=== PATIENT | male | born 1945 | race Caucasian/White ===

== ENCOUNTER 2018-06-20 20:29 | Inpatient (IN) | payer MEDICARE, MEDICAID ==
--- NOTE | 2018-06-20 21:35 | ED Physician Chart ---
ED Chief Complaint/HPI - Patient Information Date Seen:: 06/20/18 Time Seen:: 21:30 Chief Complaint:: increasing agitation History of Present Illness:: location: general quality: increasing agitation severity: moderate duration; 3 days context: SNF pt from [facility], has had slowly increasing agitation over the last 3 days. no pain complaint. RNs at facility report worsening agitation today. contacted Dr. Bhat who decided to send pt to ER for medical eval and seven-psyc admission to address and treat increasing psychiatric agitation. pt reports no pain complaint, no cough or SOB. medics report pt with stable vital signs during transportation on arrival pt in stable condition. mod factors: none assoc s/s: none hx from medic, facility RNs, Dr. Bhat Historian:: EMS Review:: Nurse's Note Reviewed, EMS run form Reviewed ED Review of Systems - Review of Systems General/Constitutional: No fever Skin: No rash Eyes: No loss of vision ENT: No nasal drainage Neck: No stiffness Cardio Vascular: No edema Pulmonary: No cough GI: No vomiting, No diarrhea G/U: No hematuria [employer]: No abnormal vaginal bleed Endocrine: No polyuria Psychiatric: Prior psych history Hematopoietic: No bruising Allergic/Immuno: No angioedema Neurological: No seizure ED Labs/Radiology/EKG Results - Lab Results Results: Laboratory Tests 06/20/18 06/20/18 06/20/18 21:40 21:40 22:15 WBC 6.3 RBC 5.18 Hgb 15.6 Hct 46.8 MCV 90.4 MCH 30.1 MCHC Differential 33.3 RDW 12.3 Plt Count 255 MPV 7.1 Neutrophils % 54.1 Lymphocytes % 31.7 Monocytes % 11.0 H Eosinophils % 2.3 Basophils % 0.9 Sodium 137 Potassium 4.1 Chloride 104 Carbon Dioxide 25.0 Anion Gap 12.1 BUN 26 H Creatinine 1.1 Est GFR ( Amer) TNP Est GFR (Non-Af Amer) TNP BUN/Creatinine Ratio 23.6 Glucose 113 H Calcium 9.5 Total Bilirubin 0.4 AST 14 ALT 11 Alkaline Phosphatase 72 Total Protein 7.0 Albumin 4.2 Globulin 2.8 Albumin/Globulin Ratio 1.5 Triglycerides 128 Cholesterol 201 H LDL Cholesterol Direct 149 HDL Cholesterol 43 Urine Source CLEAN C Urine Color ORANGE Urine Clarity HAZY Urine pH 6.0 Ur Specific [place] 1.025 Urine Protein NEGATIVE Urine Glucose (UA) NEGATIVE Urine Ketones TRACE Urine Blood NEGATIVE Urine Nitrate NEGATIVE Urine Bilirubin NEGATIVE Urine Urobilinogen 1.0 Ur Leukocyte Esterase TRACE H Urine RBC NONE SEEN Urine WBC 0-2 Ur Epithelial Cells OCCASIONAL Urine Bacteria FEW - EKG Interpretations Comments:: EKG NSR 60 atrial premature complex no acute ST elevation no acute ST depression normal axis otherwise normal EKG pt with no CP and no SOB ER READ ED Assessment - Assessment General Assessment: pt stable while in ER. sitting on gurney folding and stretching blanket for several minutes no acute abnormality no yelling during ER stay. ED Septic Shock - . Is Septic Shock (SBP<90, OR Lactate>4 mmol\L) present?: No - <6hrs of presentation: Assessment of Lungs: Lung CTA bilateral Assessment of Heart: RRR EKG Interpretation: NSR Capillary refill evaluation: Capillary refill < 2 secs Skin Exam: Warm, Dry, Good Turgur ED Reassessment (Disposition) - Reassessment Reassessment:: medical decision making pt with UTI, otherwise medically clear for seven-psyc will give first dose bactrim in ER no allergies then medically clear for seven psyc Reassessment Condition:: Unchanged - Diagnosis Diagnosis:: medical clearance for seven-psyc acute uncomplicated urinary tract infection - Patient Disposition Discharge/Transfer:: Acute Care w/in this hosp Admitted to:: [facility] Admitting Medical Physician:: Rajesh Bañuelos Admitting Psych Physician:: Bud Diallo Time:: 22:55 Condition at Disposition:: Stable, Unchanged
[2018-06-20 21:56] LABS: % BASOPHILS 0.9 % (0.0-2.0); % EOSINOPHILS 2.3 % (0.0-5.0); % LYMPHOCYTES 31.7 % (20.0-50.0); % NEUTROPHILS 54.1 % (40.0-80.0); BASOPHILE ABSOLUTE 0.1 Th/cumm (0-0.2); EOSINOPHILE ABSOLUTE 0.1 Th/cmm (0.1-0.4); HEMATOCRIT 46.8 % (41.0-60); HEMOGLOBIN 15.6 gm/dL (12-16); MEAN CELL VOLUME 90.4 fl (80-99); MEAN CORPUSCULAR HEMOGLOBIN 30.1 pg (27.0-31.0); MEAN CORPUSCULAR HGB CONC 33.3 pg (28.0-36.0); MEAN PLATELET VOLUME 7.1 fl; MONOCYTE ABSOLUTE 0.7 Th/cmm (0.3-1.0); NEUTROPHILE ABSOLUTE 3.4 Th/cmm (1.8-8.0); PLATELET COUNT 255 Th/cmm (150-400); RED BLOOD COUNT 5.18 Mil/cmm (3.80-5.80); RED CELL DISTRIBUTION WIDTH 12.3 % (11.5-20.0); WHITE BLOOD COUNT 6.3 Th/cmm (4.8-10.8)
[2018-06-20 22:13] LABS: ALB/GLOB RATIO 1.5 (1.0-1.8); ALBUMIN 4.2 gm/dL (4.2-5.5); ALKALINE PHOSPHATASE 72 U/L (34-104); ANION GAP 12.1 (7.0-16.0); BILIRUBIN,TOTAL 0.4 mg/dL (0.3-1.0); BUN - UREA NITROGEN 26 mg/dL (7-25); CALCIUM SERUM 9.5 mg/dL (8.6-10.3); CHLORIDE 104 mEq/L (98-107); CHOLESTEROL 201 mg/dL (<200); CREATININE - SERUM 1.1 mg/dL (0.7-1.3); GLUCOSE 113 mg/dL (70-105); HDL -HIGH DENSITY LIPOPROTEIN 43 mg/dL (23-92); POTASSIUM SERUM 4.1 mEq/L (3.5-5.1); SGOT 14 U/L (13-39); SGPT/ALT 11 U/L (7-52); SODIUM SERUM 137 mEq/L (136-145); TRIGLYCERIDES 128 mg/dL (<150)
[2018-06-20 22:33] LABS: URINE SOURCE CLEAN C
[2018-06-20 22:37] LABS: URINE BILIRUBIN NEGATIVE (NEGATIVE); URINE BLOOD NEGATIVE (NEGATIVE); URINE GLUCOSE (UA) NEGATIVE (NEGATIVE); URINE KETONE TRACE mg/dL (NEGATIVE); URINE LEUKOCYTE ESTERASE TRACE (NEGATIVE); URINE MICROSCOPIC INDICATED? YES; URINE NITRATE NEGATIVE (NEGATIVE); URINE PROTEIN NEGATIVE (NEGATIVE)
[2018-06-20 22:39] LABS: URINE CLARITY HAZY (CLEAR); URINE COLOR ORANGE
[2018-06-20 22:43] LABS: URINE RBC NONE SEEN /hpf (0-5); URINE WBC 0-2 /hpf (0-5)
[2018-06-20 22:44] LABS: URINE BACTERIA FEW /hpf (NONE SEEN); URINE EPITHELIAL CELLS OCCASIONAL /lpf (FEW)
[2018-06-20] MEDS ORDERED: Sulfamethoxazole/TMP 800/160mg Tab PO ONE (22:51)
[2018-06-20] MEDS ORDERED: Sulfamethoxazole/TMP 800/160mg Tab ONE (23:04)
[2018-06-21 01:59] VITALS: BP 118/70
[2018-06-21] MEDS ORDERED: Magnesium Hydroxide (MOM) 30 mL UDC PO PRN (02:13)
[2018-06-21] MEDS ORDERED: Maalox 30 mL Cup PO PRN (02:13)
[2018-06-21] MEDS: Multivitamin Tab PO SCH (09:07)
--- NOTE | 2018-06-21 16:03 | History & Physical ---
ADMIT DATE: 06/20/2018 CHIEF COMPLAINT: Increasing agitation. HISTORY OF PRESENT ILLNESS: This is a 72-year-old unfortunate male with history of intellectual disability, psych disorder, hypertension, and hypercholesterolemia; admitted from nursing facility secondary to above complaints under the service of Dr. Diallo. The patient is not a best historian, so only answered yes to all the questions. PAST MEDICAL HISTORY: As mentioned in the history of present illness. PAST SURGICAL HISTORY: Unable to obtain from the patient. ALLERGIES: No known drug allergies. MEDICATIONS: Colace, lisinopril, ____, multivitamin, Ambien. FAMILY HISTORY: Noncontributory. SOCIAL HISTORY: The patient is a half-way patient requiring 24-hour total care. REVIEW OF SYSTEMS: This is limited secondary to the patient's current mental state. We will try to obtain more detailed review of systems at a later date by talking to family members; Dayan, alex cell phone number [phone]. Another family member Carlos, ____ cell phone number [phone]. We will try to get information from nursing staff ____ as well as from Dr. Williamson, who was the attending at the nursing facility. PHYSICAL EXAMINATION: VITAL SIGNS: Blood pressure 141/70, respiration 20, pulse 53, temperature 98.1. GENERAL: Elderly male who appears his stated age. Ambulating. NECK: Supple. LUNGS: Breath sounds are otherwise clear to auscultation. HEART: Regular rate and rhythm without appreciable murmur. ABDOMEN: Soft, nontender. EXTREMITIES: No clubbing, cyanosis or edema. Positive excoriation. LABORATORY DATA: WBC ____, hemoglobin 15, platelets 255. Sodium 137, potassium 4.0, BUN 26, creatinine 1.1, blood sugar 113. UA essentially negative. ASSESSMENT AND PLAN: 1. Bradycardia. 2. Renal insufficiency. 3. Hypercholesterolemia. 4. Hypertension. 5. Intellectual disability. We will continue ____ treatment. We will place the patient on low fat, low cholesterol diet, continue on angiotensin converting enzyme inhibitor. Continue with current care. We will continue to follow. Psychiatry to manage the patient for psych issues. JOB# [id number]
--- NOTE | 2018-06-21 21:50 | Psychiatric Evaluation ---
DATE OF SERVICE: 06/21/2018 IDENTIFYING DATA: The patient is a 72-year-old male, resident of [facility]. Information obtained by directly interviewing the patient as well as reviewing the admission papers. JUSTIFICATION OF HOSPITALIZATION: The patient is admitted for increased agitation and psychosis. CHIEF COMPLAINT: "I don't know." HISTORY OF PRESENT ILLNESS: This is a first psychiatric hospitalization to [facility] for this patient who has been diagnosed to have been getting agitated and the patient is reported to have a urinary tract infection ____ and has been medically cleared and has been transferred to the psychiatric unit for further evaluation. During the evaluation, the patient is confused and having a cup in his hand that is empty and the patient is not letting it go. The patient has been very guarded and is not able to provide much of information. The patient needs to redirected and the patient is reported to have been getting easily agitated. 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 The patient is also being treated for hypertension. I am not able to get much of information from the patient, but the patient's sleep and appetite prior to the hospitalization are reported to be poor. PAST PSYCHIATRIC HISTORY: Details are not known. MEDICAL HISTORY: Physical examination is requested to be done by Dr. Bañuelos. SUBSTANCE ABUSE HISTORY: None. PHYSICAL OR SEXUAL ABUSE HISTORY: None. STRENGTH AND ASSETS: The patient is motivated. MENTAL STATUS EXAMINATION: The patient is a 72-year-old, looking his stated age, superficially cooperative and is getting easily anxious and agitated. The patient has paranoia, but denies any command hallucinations. The patient's short and long-term memory are noted to be very much impaired. The patient is not able to recall the time, day, and date. Attention span and concentration are also noted to be very poor. DIAGNOSTIC IMPRESSION: AXIS I: Psychotic disorder, not otherwise specified. IB. Dementia and behavioral change, secondary trait. AXIS II: None. AXIS III: Hypertension. IMMEDIATE TREATMENT PLAN: The patient is going to be observed on the inpatient unit, providing supportive psychotherapy. The patient is going to be closely monitored. Once stabilized, the patient is going to be discharged to [facility] for further care. [facility]# [id number]
[2018-06-22] MEDS: Multivitamin Tab PO SCH (09:07)
--- NOTE | 2018-06-22 13:05 | Internal Medicine Prog Note ---
Internal Medicine Subjective - Subjective Patient seen and examined:: with staff, chart reviewed Patient is:: awake, verbal, interactive Per staff patient has:: no adverse event, no episodes of fall, poor appetite, tolerating meds Internal Medicine Objective - Results Result Diagrams: 06/20/18 21:40 06/20/18 21:40 Recent Labs: Laboratory Last Values WBC 6.3 Th/cmm (4.8-10.8) 06/20/18 21:40 RBC 5.18 Mil/cmm (3.80-5.80) 06/20/18 21:40 Hgb 15.6 gm/dL (12-16) 06/20/18 21:40 Hct 46.8 % (41.0-60) 06/20/18 21:40 MCV 90.4 fl (80-99) 06/20/18 21:40 MCH 30.1 pg (27.0-31.0) 06/20/18 21:40 MCHC Differential 33.3 pg (28.0-36.0) 06/20/18 21:40 RDW 12.3 % (11.5-20.0) 06/20/18 21:40 Plt Count 255 Th/cmm (150-400) 06/20/18 21:40 MPV 7.1 fl 06/20/18 21:40 Neutrophils % 54.1 % (40.0-80.0) 06/20/18 21:40 Lymphocytes % 31.7 % (20.0-50.0) 06/20/18 21:40 Monocytes % 11.0 % (2.0-10.0) H 06/20/18 21:40 Eosinophils % 2.3 % (0.0-5.0) 06/20/18 21:40 Basophils % 0.9 % (0.0-2.0) 06/20/18 21:40 Sodium 137 mEq/L (136-145) 06/20/18 21:40 Potassium 4.1 mEq/L (3.5-5.1) 06/20/18 21:40 Chloride 104 mEq/L (98-107) 06/20/18 21:40 Carbon Dioxide 25.0 mEq/L (21.0-31.0) 06/20/18 21:40 Anion Gap 12.1 (7.0-16.0) 12/31/18 21:40 BUN 26 mg/dL (7-25) H 06/20/18 21:40 Creatinine 1.1 mg/dL (0.7-1.3) 06/20/18 21:40 Est GFR ( Amer) TNP 06/20/18 21:40 Est GFR (Non-Af Amer) TNP 06/20/18 21:40 BUN/Creatinine Ratio 23.6 06/20/18 21:40 Glucose 113 mg/dL (70-105) H 06/20/18 21:40 Calcium 9.5 mg/dL (8.6-10.3) 06/20/18 21:40 Total Bilirubin 0.4 mg/dL (0.3-1.0) 06/20/18 21:40 AST 14 U/L (13-39) 06/20/18 21:40 ALT 11 U/L (7-52) 06/20/18 21:40 Alkaline Phosphatase 72 U/L (34-104) 06/20/18 21:40 Total Protein 7.0 gm/dL (6.0-8.3) 06/20/18 21:40 Albumin 4.2 gm/dL (4.2-5.5) 06/20/18 21:40 Globulin 2.8 gm/dL 06/20/18 21:40 Albumin/Globulin Ratio 1.5 (1.0-1.8) 06/20/18 21:40 Triglycerides 128 mg/dL (<150) 06/20/18 21:40 Cholesterol 201 mg/dL (<200) H 06/20/18 21:40 LDL Cholesterol Direct 149 mg/dL (75-193) 06/20/18 21:40 HDL Cholesterol 43 mg/dL (23-92) 06/20/18 21:40 TSH 1.15 uIU/ml (0.34-5.60) 06/20/18 21:40 Urine Source CLEAN C 06/20/18 22:15 Urine Color ORANGE 06/20/18 22:15 Urine Clarity HAZY (CLEAR) 06/20/18 22:15 Urine pH 6.0 (4.6 - 8.0) 06/20/18 22:15 Ur Specific [place] 1.025 (1.005-1.030) 06/20/18 22:15 Urine Protein NEGATIVE mg/dL (NEGATIVE) 06/20/18 22:15 Urine Glucose (UA) NEGATIVE mg/dL (NEGATIVE) 06/20/18 22:15 Urine Ketones TRACE mg/dL (NEGATIVE) 06/20/18 22:15 Urine Blood NEGATIVE (NEGATIVE) 06/20/18 22:15 Urine Nitrate NEGATIVE (NEGATIVE) 06/20/18 22:15 Urine Bilirubin NEGATIVE (NEGATIVE) 06/20/18 22:15 Urine Urobilinogen 1.0 E.U./dL (0.2 - 1.0) 06/20/18 22:15 Ur Leukocyte Esterase TRACE (NEGATIVE) H 06/20/18 22:15 Urine RBC NONE SEEN /hpf (0-5) 06/20/18 22:15 Urine WBC 0-2 /hpf (0-5) 06/20/18 22:15 Ur Epithelial Cells OCCASIONAL /lpf (FEW) 06/20/18 22:15 Urine Bacteria FEW /hpf (NONE SEEN) 06/20/18 22:15 - Physical Exam Vitals and I&O: Vital Signs Temp 97.8 F 06/22/18 06:24 Pulse 59 06/22/18 08:18 Resp 19 06/22/18 06:24 BP 124/76 06/22/18 08:18 Pulse Ox 98 06/22/18 06:24 Intake & Output 06/21/18 06/22/18 06/22/18 18:59 06:59 18:59 Intake Total 240 Balance 240 Intake: Oral 240 Other: # Voids 1 # Bowel Movements 0 Active Medications: Current Medications Acetaminophen (Tylenol) 650 mg PO Q4HR PRN PRN Reason: Mild Pain 1-3/ Temp above 100 Stop: 08/20/18 02:12 Al Hydrox/Mg Hydrox/Simethicone (Maalox) 30 ml PO Q4HR PRN PRN Reason: GI DISTRESS Stop: 08/20/18 02:12 Docusate Sodium (Colace) 100 mg PO BID [facility] Stop: 08/20/18 08:59 Last Admin: 06/22/18 09:07 Dose: 100 mg Lisinopril (Zestril) 10 mg PO DAILY [facility] Stop: 08/20/18 08:59 Last Admin: 06/22/18 08:18 Dose: Not Given Lorazepam (Ativan) 0.5 mg PO Q4HR PRN; Protocol PRN Reason: Agitation/ Anxiety Stop: 07/21/18 02:12 Last Admin: 06/22/18 09:07 Dose: 0.5 mg Magnesium Hydroxide (Milk Of Magnesia) 30 ml PO HS PRN PRN Reason: Constipation Multivitamins/Vitamin C (Theragran) 1 tab PO DAILY [facility] Stop: 08/20/18 08:59 Last Admin: 06/22/18 09:07 Dose: 1 tab Zolpidem Tartrate (Ambien) 5 mg PO HS PRN PRN Reason: Insomnia Stop: 08/20/18 02:12 Last Admin: 06/21/18 20:25 Dose: 5 mg General: demented HEENT: NC/AT, PERRLA Neck: Supple, No JVD, No LAD Lungs: CTAB Cardiovascular: RRR, Normal S1, Normal S2, with murmur Abdomen: soft, non-tender, globular, non-distended, positive bowel sound Extremities: excoriation Neurological: no change, disorganized Internal Medicine Assmt/Plan - Assessment Assessment: ASSESSMENT AND PLAN: 1. Bradycardia. 2. Renal insufficiency. 3. Hypercholesterolemia. 4. Hypertension. 5. Intellectual disability. - Plan Plan: PLAN: We will continue __current__ treatment. We will place the patient on low fat, low cholesterol diet, continue on angiotensin converting enzyme inhibitor. Continue with current care. We will continue to follow. Psychiatry to manage the patient for psych issues.
--- NOTE | 2018-06-22 18:47 | Consultation ---
DATE OF CONSULTATION: 06/22/2018 REQUESTING PHYSICIAN: Bud Diallo M.D. TYPE OF CONSULTATION: Psychology. HISTORY OF PRESENT ILLNESS: The patient is a 72-year-old male. The patient is a resident of [facility]. The following is by review of the medical record and by patient's self-report. The patient is being admitted due to increased agitation and psychosis. Upon interview, the patient states that he does not know why he is being hospitalized. The staff at the patient's facility reports that the patient had become confused as well as guarded and easily agitated. The staff also reported the patient would refuse treatment at times. The patient was admitted through the ER and was medically cleared and transferred to the geropsychiatric unit. The patient denied any suicidal ideation, plan, or intention. PAST MEDICAL HISTORY: Please see history and physical by Dr. Bañuelos. PAST PSYCHIATRIC HISTORY: Records are unavailable. Details are unknown. SUBSTANCE ABUSE HISTORY: The patient did not answer these questions regarding the use of alcohol, tobacco, or illicit drugs. PSYCHOSOCIAL HISTORY: The patient did not answer questions about occupational or educational history. The patient states that he is a [employer]. The patient denied any history of physical or sexual abuse. The patient did not answer questions about current legal problems. The patient did not answer questions about family members involved in his care. The patient wishes to return to [facility]. MENTAL STATUS EXAMINATION: The patient appears to be his stated age. The patient's attitude is superficially cooperative. Eye contact is poor. Mood is anxious and irritable. Affect is constricted. Thought process shows to be confused. There is evidence of paranoid ideation. The patient denied any auditory or visual hallucinations. The patient denies any suicidal or homicidal ideation, plan, or intention. The patient's behavior has been difficult to redirect on the unit according to staff. Impulse control is poor. Concentration is very poor. Sensorium is alert and oriented to self only. The patient did not participate in the memory assessment. It appears the patient's immediate and short term memory are impaired. Long-term memory needs further evaluation. The patient did not participate in the interpretation of proverbs. Insight is impaired. Judgment is impaired. DIAGNOSTIC IMPRESSION: AXIS I: 1. Psychotic disorder, not otherwise specified. 2. Dementia with behavioral disturbance. AXIS II: Deferred. AXIS III: Per Dr. Bañuelos. TREATMENT PLAN: The patient has been seen by Dr. Diallo for psychiatric evaluation and for the management of the patient's psychotropic medications. We will provide supportive psychotherapy to include reality orientation, differentiation, and integration. We will provide de-escalation and limit setting. We will provide stress management to assist the patient in increasing his frustration tolerance. We will provide motivational enhancement for the patient to become compliant and stay compliant with all aspects of his care and treatment. We will provide coping strategies for phase of life issues as well. We will encourage the patient to be able to demonstrate emotional and self-regulation prior to his discharge. Thank you, Dr. Diallo, for this consult and the opportunity to participate in this patient's care. JOB# [id number] RAINA
--- NOTE | 2018-06-22 23:34 | Progress Notes ---
DATE: 06/22/2018 PSYCHIATRIC PROGRESS NOTE SUBJECTIVE: Staff was spoken to. The patient is interviewed. Mood is noted to be irritable. Affect is constricted. Insight and judgment are noted to be still impaired. Impulse control is noted to be poor. Coping skills are also noted to be very poor. The patient has been having difficult time to cope with the stress. No side effects to the medications are noted. ASSESSMENT: The patient is still impulsive. PLAN: To continue the patient with the supportive therapy and follow up. [facility]# [id number]
[2018-06-23] MEDS: Multivitamin Tab PO SCH ×2 (08:41→08:56)
--- NOTE | 2018-06-23 12:53 | Internal Medicine Prog Note ---
Internal Medicine Subjective - Subjective Patient seen and examined:: with staff, chart reviewed Patient is:: awake, verbal, interactive Per staff patient has:: no adverse event, no episodes of fall, poor appetite, tolerating meds Internal Medicine Objective - Results Result Diagrams: 06/20/18 21:40 06/20/18 21:40 Recent Labs: Laboratory Last Values WBC 6.3 Th/cmm (4.8-10.8) 06/20/18 21:40 RBC 5.18 Mil/cmm (3.80-5.80) 06/20/18 21:40 Hgb 15.6 gm/dL (12-16) 06/20/18 21:40 Hct 46.8 % (41.0-60) 06/20/18 21:40 MCV 90.4 fl (80-99) 06/20/18 21:40 MCH 30.1 pg (27.0-31.0) 06/20/18 21:40 MCHC Differential 33.3 pg (28.0-36.0) 06/20/18 21:40 RDW 12.3 % (11.5-20.0) 06/20/18 21:40 Plt Count 255 Th/cmm (150-400) 06/20/18 21:40 MPV 7.1 fl 06/20/18 21:40 Neutrophils % 54.1 % (40.0-80.0) 06/20/18 21:40 Lymphocytes % 31.7 % (20.0-50.0) 06/20/18 21:40 Monocytes % 11.0 % (2.0-10.0) H 06/20/18 21:40 Eosinophils % 2.3 % (0.0-5.0) 06/20/18 21:40 Basophils % 0.9 % (0.0-2.0) 06/20/18 21:40 Sodium 137 mEq/L (136-145) 06/20/18 21:40 Potassium 4.1 mEq/L (3.5-5.1) 06/20/18 21:40 Chloride 104 mEq/L (98-107) 06/20/18 21:40 Carbon Dioxide 25.0 mEq/L (21.0-31.0) 06/20/18 21:40 Anion Gap 12.1 (7.0-16.0) 12/31/18 21:40 BUN 26 mg/dL (7-25) H 06/20/18 21:40 Creatinine 1.1 mg/dL (0.7-1.3) 06/20/18 21:40 Est GFR ( Amer) TNP 06/20/18 21:40 Est GFR (Non-Af Amer) TNP 06/20/18 21:40 BUN/Creatinine Ratio 23.6 06/20/18 21:40 Glucose 113 mg/dL (70-105) H 06/20/18 21:40 Calcium 9.5 mg/dL (8.6-10.3) 06/20/18 21:40 Total Bilirubin 0.4 mg/dL (0.3-1.0) 06/20/18 21:40 AST 14 U/L (13-39) 06/20/18 21:40 ALT 11 U/L (7-52) 06/20/18 21:40 Alkaline Phosphatase 72 U/L (34-104) 06/20/18 21:40 Total Protein 7.0 gm/dL (6.0-8.3) 06/20/18 21:40 Albumin 4.2 gm/dL (4.2-5.5) 06/20/18 21:40 Globulin 2.8 gm/dL 06/20/18 21:40 Albumin/Globulin Ratio 1.5 (1.0-1.8) 06/20/18 21:40 Triglycerides 128 mg/dL (<150) 06/20/18 21:40 Cholesterol 201 mg/dL (<200) H 06/20/18 21:40 LDL Cholesterol Direct 149 mg/dL (75-193) 06/20/18 21:40 HDL Cholesterol 43 mg/dL (23-92) 06/20/18 21:40 TSH 1.15 uIU/ml (0.34-5.60) 06/20/18 21:40 Urine Source CLEAN C 06/20/18 22:15 Urine Color ORANGE 06/20/18 22:15 Urine Clarity HAZY (CLEAR) 06/20/18 22:15 Urine pH 6.0 (4.6 - 8.0) 06/20/18 22:15 Ur Specific [place] 1.025 (1.005-1.030) 06/20/18 22:15 Urine Protein NEGATIVE mg/dL (NEGATIVE) 06/20/18 22:15 Urine Glucose (UA) NEGATIVE mg/dL (NEGATIVE) 06/20/18 22:15 Urine Ketones TRACE mg/dL (NEGATIVE) 06/20/18 22:15 Urine Blood NEGATIVE (NEGATIVE) 06/20/18 22:15 Urine Nitrate NEGATIVE (NEGATIVE) 06/20/18 22:15 Urine Bilirubin NEGATIVE (NEGATIVE) 06/20/18 22:15 Urine Urobilinogen 1.0 E.U./dL (0.2 - 1.0) 06/20/18 22:15 Ur Leukocyte Esterase TRACE (NEGATIVE) H 06/20/18 22:15 Urine RBC NONE SEEN /hpf (0-5) 06/20/18 22:15 Urine WBC 0-2 /hpf (0-5) 06/20/18 22:15 Ur Epithelial Cells OCCASIONAL /lpf (FEW) 06/20/18 22:15 Urine Bacteria FEW /hpf (NONE SEEN) 06/20/18 22:15 - Physical Exam Vitals and I&O: Vital Signs Temp 98.2 F 06/23/18 06:50 Pulse 86 06/23/18 06:50 Resp 18 06/23/18 10:40 BP 129/74 06/23/18 06:50 Pulse Ox 100 06/23/18 06:50 Intake & Output 06/22/18 06/23/18 06/23/18 18:59 06:59 18:59 Intake Total 800 300 Balance 800 300 Intake: Oral 800 300 Other: # Voids 4 1 # Bowel Movements 0 1 Active Medications: Current Medications Acetaminophen (Tylenol) 650 mg PO Q4HR PRN PRN Reason: Mild Pain 1-3/ Temp above 100 Stop: 08/20/18 02:12 Al Hydrox/Mg Hydrox/Simethicone (Maalox) 30 ml PO Q4HR PRN PRN Reason: GI DISTRESS Stop: 08/20/18 02:12 Docusate Sodium (Colace) 100 mg PO BID [facility] Stop: 08/20/18 08:59 Last Admin: 06/23/18 08:55 Dose: Not Given Escitalopram Oxalate (Lexapro) 5 mg PO DAILY [facility]; Protocol Stop: 08/23/18 08:59 Lisinopril (Zestril) 10 mg PO DAILY [facility] Stop: 08/20/18 08:59 Last Admin: 06/23/18 08:55 Dose: Not Given Lorazepam (Ativan) 0.5 mg PO Q4HR PRN; Protocol PRN Reason: Agitation/ Anxiety Stop: 07/21/18 02:12 Last Admin: 06/22/18 09:07 Dose: 0.5 mg Magnesium Hydroxide (Milk Of Magnesia) 30 ml PO HS PRN PRN Reason: Constipation Multivitamins/Vitamin C (Theragran) 1 tab PO DAILY [facility] Stop: 08/20/18 08:59 Last Admin: 06/23/18 08:56 Dose: Not Given Zolpidem Tartrate (Ambien) 5 mg PO HS PRN PRN Reason: Insomnia Stop: 08/20/18 02:12 Last Admin: 06/22/18 20:56 Dose: 5 mg General: demented HEENT: NC/AT, PERRLA Neck: Supple, No JVD, No LAD Lungs: CTAB Cardiovascular: RRR, Normal S1, Normal S2, with murmur Abdomen: soft, non-tender, globular, non-distended, positive bowel sound Extremities: excoriation Neurological: no change, disorganized Internal Medicine Assmt/Plan - Assessment Assessment: ASSESSMENT AND PLAN: 1. Bradycardia. 2. Renal insufficiency. 3. Hypercholesterolemia. 4. Hypertension. 5. Intellectual disability. - Plan Plan: PLAN: We will continue __current__ treatment. We will place the patient on low fat, low cholesterol diet, continue on angiotensin converting enzyme inhibitor. Continue with current care. We will continue to follow. Psychiatry to manage the patient for psych issues.
--- NOTE | 2018-06-23 20:20 | Progress Notes ---
DATE: 06/23/2018 SUBJECTIVE: Staff was spoken to. The patient is interviewed. Mood is noted to be irritable. Affect is constricted. The patient's insight and judgment is noted to be still impaired. Impulse control is noted to be poor. Coping skills are noted to be very poor. The patient has been having difficult time to cope with the stress. No side effects to the medications are noted. The patient has been getting easily frustrated when staff are trying to help him with his ADLs. ASSESSMENT: The patient is still impulsive. The patient is depressed at this time. Plan to add to the Lexapro and encourage the patient to verbalize the concerned rather than to act out. PLAN: To continue the patient with current medications and since the patient has been extremely depressed and is not getting out of the bed, it is decided to add a low dose of the Lexapro and see if it is going to be of some help with the depression for this patient. JOB# [id number]
[2018-06-24] MEDS ORDERED: Escitalopram Oxalate 5 mg Tab PO SCH (09:00)
[2018-06-24] MEDS: Multivitamin Tab PO SCH (09:42)
--- NOTE | 2018-06-24 12:26 | Progress Notes ---
DATE: 06/24/2018 PSYCHIATRIC PROGRESS NOTE PROGRESS ON THE UNIT: Staff was spoken to. The patient is interviewed. Mood is noted to be irritable. Affect is constricted. The patient is still isolative and withdrawn. Insight and judgment at this time are noted to be still impaired. The patient has been on 5 mg of Lexapro and has been able to tolerate the medication. The patient continues to be depressed, very, very limited participation in the groups. ASSESSMENT: The patient is still depressed. PLAN: To continue the patient with supportive therapy. I encouraged the patient to verbalize the concerns rather than to act out. JOB# [id number]
--- NOTE | 2018-06-24 13:06 | Internal Medicine Prog Note ---
Internal Medicine Subjective - Subjective Patient seen and examined:: with staff, chart reviewed Patient is:: awake, verbal, interactive Per staff patient has:: no adverse event, no episodes of fall, poor appetite, tolerating meds Internal Medicine Objective - Results Result Diagrams: 06/20/18 21:40 06/20/18 21:40 Recent Labs: Laboratory Last Values WBC 6.3 Th/cmm (4.8-10.8) 06/20/18 21:40 RBC 5.18 Mil/cmm (3.80-5.80) 06/20/18 21:40 Hgb 15.6 gm/dL (12-16) 06/20/18 21:40 Hct 46.8 % (41.0-60) 06/20/18 21:40 MCV 90.4 fl (80-99) 06/20/18 21:40 MCH 30.1 pg (27.0-31.0) 06/20/18 21:40 MCHC Differential 33.3 pg (28.0-36.0) 06/20/18 21:40 RDW 12.3 % (11.5-20.0) 06/20/18 21:40 Plt Count 255 Th/cmm (150-400) 06/20/18 21:40 MPV 7.1 fl 06/20/18 21:40 Neutrophils % 54.1 % (40.0-80.0) 06/20/18 21:40 Lymphocytes % 31.7 % (20.0-50.0) 06/20/18 21:40 Monocytes % 11.0 % (2.0-10.0) H 06/20/18 21:40 Eosinophils % 2.3 % (0.0-5.0) 06/20/18 21:40 Basophils % 0.9 % (0.0-2.0) 06/20/18 21:40 Sodium 137 mEq/L (136-145) 06/20/18 21:40 Potassium 4.1 mEq/L (3.5-5.1) 06/20/18 21:40 Chloride 104 mEq/L (98-107) 06/20/18 21:40 Carbon Dioxide 25.0 mEq/L (21.0-31.0) 06/20/18 21:40 Anion Gap 12.1 (7.0-16.0) 12/31/18 21:40 BUN 26 mg/dL (7-25) H 06/20/18 21:40 Creatinine 1.1 mg/dL (0.7-1.3) 06/20/18 21:40 Est GFR ( Amer) TNP 06/20/18 21:40 Est GFR (Non-Af Amer) TNP 06/20/18 21:40 BUN/Creatinine Ratio 23.6 06/20/18 21:40 Glucose 113 mg/dL (70-105) H 06/20/18 21:40 Calcium 9.5 mg/dL (8.6-10.3) 06/20/18 21:40 Total Bilirubin 0.4 mg/dL (0.3-1.0) 06/20/18 21:40 AST 14 U/L (13-39) 06/20/18 21:40 ALT 11 U/L (7-52) 06/20/18 21:40 Alkaline Phosphatase 72 U/L (34-104) 06/20/18 21:40 Total Protein 7.0 gm/dL (6.0-8.3) 06/20/18 21:40 Albumin 4.2 gm/dL (4.2-5.5) 06/20/18 21:40 Globulin 2.8 gm/dL 06/20/18 21:40 Albumin/Globulin Ratio 1.5 (1.0-1.8) 06/20/18 21:40 Triglycerides 128 mg/dL (<150) 06/20/18 21:40 Cholesterol 201 mg/dL (<200) H 06/20/18 21:40 LDL Cholesterol Direct 149 mg/dL (75-193) 06/20/18 21:40 HDL Cholesterol 43 mg/dL (23-92) 06/20/18 21:40 TSH 1.15 uIU/ml (0.34-5.60) 06/20/18 21:40 Urine Source CLEAN C 06/20/18 22:15 Urine Color ORANGE 06/20/18 22:15 Urine Clarity HAZY (CLEAR) 06/20/18 22:15 Urine pH 6.0 (4.6 - 8.0) 06/20/18 22:15 Ur Specific [place] 1.025 (1.005-1.030) 06/20/18 22:15 Urine Protein NEGATIVE mg/dL (NEGATIVE) 06/20/18 22:15 Urine Glucose (UA) NEGATIVE mg/dL (NEGATIVE) 06/20/18 22:15 Urine Ketones TRACE mg/dL (NEGATIVE) 06/20/18 22:15 Urine Blood NEGATIVE (NEGATIVE) 06/20/18 22:15 Urine Nitrate NEGATIVE (NEGATIVE) 06/20/18 22:15 Urine Bilirubin NEGATIVE (NEGATIVE) 06/20/18 22:15 Urine Urobilinogen 1.0 E.U./dL (0.2 - 1.0) 06/20/18 22:15 Ur Leukocyte Esterase TRACE (NEGATIVE) H 06/20/18 22:15 Urine RBC NONE SEEN /hpf (0-5) 06/20/18 22:15 Urine WBC 0-2 /hpf (0-5) 06/20/18 22:15 Ur Epithelial Cells OCCASIONAL /lpf (FEW) 06/20/18 22:15 Urine Bacteria FEW /hpf (NONE SEEN) 06/20/18 22:15 RPR NONREACTIVE (NONREACTIVE) 06/20/18 21:40 - Physical Exam Vitals and I&O: Vital Signs Temp 97.4 F 06/23/18 20:00 Pulse 80 06/24/18 09:42 Resp 20 06/23/18 20:00 BP 124/64 06/24/18 09:42 Pulse Ox 98 06/23/18 20:00 Intake & Output 06/23/18 06/24/18 06/24/18 18:59 06:59 18:59 Intake Total 1400 Balance 1400 Intake: Oral 1400 Other: # Voids 4 # Bowel Movements 0 Active Medications: Current Medications Acetaminophen (Tylenol) 650 mg PO Q4HR PRN PRN Reason: Mild Pain 1-3/ Temp above 100 Stop: 08/20/18 02:12 Al Hydrox/Mg Hydrox/Simethicone (Maalox) 30 ml PO Q4HR PRN PRN Reason: GI DISTRESS Stop: 08/20/18 02:12 Docusate Sodium (Colace) 100 mg PO BID VALENTIN Stop: 08/20/18 08:59 Last Admin: 06/24/18 09:42 Dose: 100 mg Escitalopram Oxalate (Lexapro) 5 mg PO DAILY [facility]; Protocol Stop: 08/23/18 08:59 Last Admin: 06/24/18 09:43 Dose: 5 mg Lisinopril (Zestril) 10 mg PO DAILY VALENTIN Stop: 08/20/18 08:59 Last Admin: 06/24/18 09:42 Dose: 10 mg Lorazepam (Ativan) 0.5 mg PO Q4HR PRN; Protocol PRN Reason: Agitation/ Anxiety Stop: 07/21/18 02:12 Last Admin: 06/23/18 15:19 Dose: 0.5 mg Magnesium Hydroxide (Milk Of Magnesia) 30 ml PO HS PRN PRN Reason: Constipation Multivitamins/Vitamin C (Theragran) 1 tab PO DAILY VALENTIN Stop: 08/20/18 08:59 Last Admin: 06/24/18 09:42 Dose: 1 tab Zolpidem Tartrate (Ambien) 5 mg PO HS PRN PRN Reason: Insomnia Stop: 08/20/18 02:12 Last Admin: 06/22/18 20:56 Dose: 5 mg General: demented HEENT: NC/AT, PERRLA Neck: Supple, No JVD, No LAD Lungs: CTAB Cardiovascular: RRR, Normal S1, Normal S2, with murmur Abdomen: soft, non-tender, globular, non-distended, positive bowel sound Extremities: excoriation Neurological: no change, disorganized Internal Medicine Assmt/Plan - Assessment Assessment: ASSESSMENT AND PLAN: 1. Bradycardia. 2. Renal insufficiency. 3. Hypercholesterolemia. 4. Hypertension. 5. Intellectual disability. - Plan Plan: PLAN: We will continue __current__ treatment. We will place the patient on low fat, low cholesterol diet, continue on angiotensin converting enzyme inhibitor. Continue with current care. We will continue to follow. Psychiatry to manage the patient for psych issues.
--- NOTE | 2018-06-25 09:29 | Progress Notes ---
DATE: 06/25/2018 PSYCHIATRIC PROGRESS NOTE SUBJECTIVE: Staff was spoken to. The patient is interviewed. Mood is noted to be depressed. Affect is constricted. The patient's coping skills at this time are noted to be very poor. The patient is isolative and withdrawn. Insight and judgment are noted to be still impaired. Impulse control seems to be limited. The patient is reluctant to participate in any of the groups. ASSESSMENT: The patient is still depressed. PLAN: To increase the dose on Lexapro and follow the patient up. JOB# [id number]
[2018-06-25] MEDS: Multivitamin Tab PO SCH (10:12)
--- NOTE | 2018-06-25 14:34 | Internal Medicine Prog Note ---
Internal Medicine Subjective - Subjective Service Date: 06/25/18 Patient is:: awake, verbal, interactive Per staff patient has:: no adverse event, no episodes of fall, poor appetite, tolerating meds Internal Medicine Objective - Results Result Diagrams: 06/20/18 21:40 06/20/18 21:40 Recent Labs: Laboratory Last Values WBC 6.3 Th/cmm (4.8-10.8) 06/20/18 21:40 RBC 5.18 Mil/cmm (3.80-5.80) 06/20/18 21:40 Hgb 15.6 gm/dL (12-16) 06/20/18 21:40 Hct 46.8 % (41.0-60) 06/20/18 21:40 MCV 90.4 fl (80-99) 06/20/18 21:40 MCH 30.1 pg (27.0-31.0) 06/20/18 21:40 MCHC Differential 33.3 pg (28.0-36.0) 06/20/18 21:40 RDW 12.3 % (11.5-20.0) 06/20/18 21:40 Plt Count 255 Th/cmm (150-400) 06/20/18 21:40 MPV 7.1 fl 06/20/18 21:40 Neutrophils % 54.1 % (40.0-80.0) 06/20/18 21:40 Lymphocytes % 31.7 % (20.0-50.0) 06/20/18 21:40 Monocytes % 11.0 % (2.0-10.0) H 06/20/18 21:40 Eosinophils % 2.3 % (0.0-5.0) 06/20/18 21:40 Basophils % 0.9 % (0.0-2.0) 06/20/18 21:40 Sodium 137 mEq/L (136-145) 06/20/18 21:40 Potassium 4.1 mEq/L (3.5-5.1) 06/20/18 21:40 Chloride 104 mEq/L (98-107) 06/20/18 21:40 Carbon Dioxide 25.0 mEq/L (21.0-31.0) 06/20/18 21:40 Anion Gap 12.1 (7.0-16.0) 06/20/18 21:40 BUN 26 mg/dL (7-25) H 06/20/18 21:40 Creatinine 1.1 mg/dL (0.7-1.3) 06/20/18 21:40 Est GFR ( Amer) TNP 06/20/18 21:40 Est GFR (Non-Af Amer) TNP 06/20/18 21:40 BUN/Creatinine Ratio 23.6 06/20/18 21:40 Glucose 113 mg/dL (70-105) H 06/20/18 21:40 Calcium 9.5 mg/dL (8.6-10.3) 06/20/18 21:40 Total Bilirubin 0.4 mg/dL (0.3-1.0) 06/20/18 21:40 AST 14 U/L (13-39) 06/20/18 21:40 ALT 11 U/L (7-52) 06/20/18 21:40 Alkaline Phosphatase 72 U/L (34-104) 06/20/18 21:40 Total Protein 7.0 gm/dL (6.0-8.3) 06/20/18 21:40 Albumin 4.2 gm/dL (4.2-5.5) 06/20/18 21:40 Globulin 2.8 gm/dL 06/20/18 21:40 Albumin/Globulin Ratio 1.5 (1.0-1.8) 06/20/18 21:40 Triglycerides 128 mg/dL (<150) 06/20/18 21:40 Cholesterol 201 mg/dL (<200) H 06/20/18 21:40 LDL Cholesterol Direct 149 mg/dL (75-193) 06/20/18 21:40 HDL Cholesterol 43 mg/dL (23-92) 06/20/18 21:40 TSH 1.15 uIU/ml (0.34-5.60) 06/20/18 21:40 Urine Source CLEAN C 06/20/18 22:15 Urine Color ORANGE 06/20/18 22:15 Urine Clarity HAZY (CLEAR) 06/20/18 22:15 Urine pH 6.0 (4.6 - 8.0) 06/20/18 22:15 Ur Specific [place] 1.025 (1.005-1.030) 06/20/18 22:15 Urine Protein NEGATIVE mg/dL (NEGATIVE) 06/20/18 22:15 Urine Glucose (UA) NEGATIVE mg/dL (NEGATIVE) 06/20/18 22:15 Urine Ketones TRACE mg/dL (NEGATIVE) 06/20/18 22:15 Urine Blood NEGATIVE (NEGATIVE) 06/20/18 22:15 Urine Nitrate NEGATIVE (NEGATIVE) 06/20/18 22:15 Urine Bilirubin NEGATIVE (NEGATIVE) 06/20/18 22:15 Urine Urobilinogen 1.0 E.U./dL (0.2 - 1.0) 06/20/18 22:15 Ur Leukocyte Esterase TRACE (NEGATIVE) H 06/20/18 22:15 Urine RBC NONE SEEN /hpf (0-5) 06/20/18 22:15 Urine WBC 0-2 /hpf (0-5) 06/20/18 22:15 Ur Epithelial Cells OCCASIONAL /lpf (FEW) 06/20/18 22:15 Urine Bacteria FEW /hpf (NONE SEEN) 06/20/18 22:15 RPR NONREACTIVE (NONREACTIVE) 06/20/18 21:40 - Physical Exam Vitals and I&O: Vital Signs Temp 97.0 F 06/25/18 06:03 Pulse 88 06/25/18 10:13 Resp 19 06/25/18 06:03 BP 131/79 06/25/18 10:13 Pulse Ox 94 06/25/18 06:03 Intake & Output 06/24/18 06/25/18 06/25/18 18:59 06:59 18:59 Intake Total 240 Balance 240 Intake: Oral 240 Other: # Voids 2 # Bowel Movements 0 Active Medications: Current Medications Acetaminophen (Tylenol) 650 mg PO Q4HR PRN PRN Reason: Mild Pain 1-3/ Temp above 100 Stop: 08/20/18 02:12 Al Hydrox/Mg Hydrox/Simethicone (Maalox) 30 ml PO Q4HR PRN PRN Reason: GI DISTRESS Stop: 08/20/18 02:12 Docusate Sodium (Colace) 100 mg PO BID VALENTIN Stop: 08/20/18 08:59 Last Admin: 06/25/18 10:12 Dose: 100 mg Escitalopram Oxalate (Lexapro) 10 mg PO DAILY VALENTIN; Protocol Stop: 08/24/18 08:59 Last Admin: 06/25/18 10:12 Dose: 10 mg Lisinopril (Zestril) 10 mg PO DAILY VALENTIN Stop: 08/20/18 08:59 Last Admin: 06/25/18 10:13 Dose: 10 mg Lorazepam (Ativan) 0.5 mg PO Q4HR PRN; Protocol PRN Reason: Agitation/ Anxiety Stop: 07/21/18 02:12 Last Admin: 06/23/18 15:19 Dose: 0.5 mg Magnesium Hydroxide (Milk Of Magnesia) 30 ml PO HS PRN PRN Reason: Constipation Multivitamins/Vitamin C (Theragran) 1 tab PO DAILY VALENTIN Stop: 08/20/18 08:59 Last Admin: 06/25/18 10:12 Dose: 1 tab Zolpidem Tartrate (Ambien) 5 mg PO HS PRN PRN Reason: Insomnia Stop: 08/20/18 02:12 Last Admin: 06/22/18 20:56 Dose: 5 mg General: demented HEENT: NC/AT, PERRLA Neck: Supple, No JVD, No LAD Lungs: CTAB Cardiovascular: RRR, Normal S1, Normal S2, with murmur Abdomen: soft, non-tender, globular, non-distended, positive bowel sound Extremities: excoriation Neurological: no change, disorganized Internal Medicine Assmt/Plan - Assessment Assessment: ASSESSMENT AND PLAN: 1. Bradycardia. 2. Renal insufficiency. 3. Hypercholesterolemia. 4. Hypertension. 5. Intellectual disability. . - Plan Plan: monitor hr closely fall precautions continue current plan of care Nutritional Asmnt/Malnutr-PDOC - Dietary Evaluation Malnutrition Findings (Please click <Entered> for more info): Nutritional Asmnt/Malnutrition Start: 06/24/18 13: 36 Text: Status: Complete Freq: Protocol: Document 06/24/18 13:36 [email or web address] (Rec: 06/24/18 13:41 [email or web address]) Nutritional Asmnt/Malnutrition Patient General Information Nutritional Screening Moderate Risk Diagnosis psychosis Pertinent Medical Hx/Surgical Hx intellectual disability, psycho disorder, HTN, hypercholesterolemia Subjective Information Pt was seen eating in dining room at time of visit. Pt is confused, unable to participate in conversation, but agreed the food is good. PO intake is 100% per EMR. Current Diet Order/ Nutrition Support mech soft ground, BERNARD small portion Patient / S.O Can't verbalize diet edu Pertinent Medications colace, theragran, ambien Pertinent Labs 06/20 glucose 113, BUN 26, cholesterol 201 Nutritional Hx/Data Height 5 ft 7 in Height (Calculated Centimeters) 170.2 Current Weight (lbs) 167 lb Weight (Calculated Kilograms) 75.7 Weight (Calculated Grams) 84265.9 [place] Body Weight 148 Body Mass Index (BMI) 26.2 Weight Status Overweight GI Symptoms GI Symptoms None Last BM 1/3 Difficult in: None Food Allergies No Skin Integrity/Comment: dimitri, beronica 22 Current %PO Good (75-100%) Estimated Nutritional Goals BEE in Kcals: Using Current wt Calories/Kcals/Kg 23-27 Kcals Calculated 9997-8880 Protein: Using Current wt Protein g/k.8-1 Protein Calculated 60-75 Fluid: ml 0633-7068 (1ml/kcal) Nutritional Problem No current Nutrition Prob Problem N/A Malnutrition Alert Is there a minimum of two criteria No selected? Query Text:Check all the applicable criteria. A minimum of two criteria are recommended for diagnosis of either severe or non-severe malnutrition. Malnutrition Related to Morbid Obesity Malnutrition related to morbid obesity No Intervention/Recommendation Comments 1. Continue with [facility] soft ground, BERNARD small portions diet as ordered. 2. Monitor PO intake, wt, labs and skin integrity 3. F/U as low risk in 7 days Expected Outcomes/Goals Expected Outcomes/Goals Goal: PO intake to meet at least 75% of nutritional needs and improved labs. Reviewed by Mesha Clemente RD
[2018-06-26] MEDS: Multivitamin Tab PO SCH (09:58)
--- NOTE | 2018-06-26 14:49 | Internal Medicine Prog Note ---
Internal Medicine Subjective - Subjective Service Date: 06/26/18 Patient is:: awake, verbal, interactive Per staff patient has:: no adverse event, no episodes of fall, poor appetite, tolerating meds Internal Medicine Objective - Results Result Diagrams: 06/20/18 21:40 06/20/18 21:40 Recent Labs: Laboratory Last Values WBC 6.3 Th/cmm (4.8-10.8) 06/20/18 21:40 RBC 5.18 Mil/cmm (3.80-5.80) 06/20/18 21:40 Hgb 15.6 gm/dL (12-16) 06/20/18 21:40 Hct 46.8 % (41.0-60) 06/20/18 21:40 MCV 90.4 fl (80-99) 06/20/18 21:40 MCH 30.1 pg (27.0-31.0) 06/20/18 21:40 MCHC Differential 33.3 pg (28.0-36.0) 06/20/18 21:40 RDW 12.3 % (11.5-20.0) 06/20/18 21:40 Plt Count 255 Th/cmm (150-400) 06/20/18 21:40 MPV 7.1 fl 06/20/18 21:40 Neutrophils % 54.1 % (40.0-80.0) 06/20/18 21:40 Lymphocytes % 31.7 % (20.0-50.0) 06/20/18 21:40 Monocytes % 11.0 % (2.0-10.0) H 06/20/18 21:40 Eosinophils % 2.3 % (0.0-5.0) 06/20/18 21:40 Basophils % 0.9 % (0.0-2.0) 06/20/18 21:40 Sodium 137 mEq/L (136-145) 06/20/18 21:40 Potassium 4.1 mEq/L (3.5-5.1) 06/20/18 21:40 Chloride 104 mEq/L (98-107) 06/20/18 21:40 Carbon Dioxide 25.0 mEq/L (21.0-31.0) 06/20/18 21:40 Anion Gap 12.1 (7.0-16.0) 06/20/18 21:40 BUN 26 mg/dL (7-25) H 06/20/18 21:40 Creatinine 1.1 mg/dL (0.7-1.3) 06/20/18 21:40 Est GFR ( Amer) TNP 06/20/18 21:40 Est GFR (Non-Af Amer) TNP 06/20/18 21:40 BUN/Creatinine Ratio 23.6 06/20/18 21:40 Glucose 113 mg/dL (70-105) H 06/20/18 21:40 Calcium 9.5 mg/dL (8.6-10.3) 06/20/18 21:40 Total Bilirubin 0.4 mg/dL (0.3-1.0) 06/20/18 21:40 AST 14 U/L (13-39) 06/20/18 21:40 ALT 11 U/L (7-52) 06/20/18 21:40 Alkaline Phosphatase 72 U/L (34-104) 06/20/18 21:40 Total Protein 7.0 gm/dL (6.0-8.3) 06/20/18 21:40 Albumin 4.2 gm/dL (4.2-5.5) 06/20/18 21:40 Globulin 2.8 gm/dL 06/20/18 21:40 Albumin/Globulin Ratio 1.5 (1.0-1.8) 06/20/18 21:40 Triglycerides 128 mg/dL (<150) 06/20/18 21:40 Cholesterol 201 mg/dL (<200) H 06/20/18 21:40 LDL Cholesterol Direct 149 mg/dL (75-193) 06/20/18 21:40 HDL Cholesterol 43 mg/dL (23-92) 06/20/18 21:40 TSH 1.15 uIU/ml (0.34-5.60) 06/20/18 21:40 Urine Source CLEAN C 06/20/18 22:15 Urine Color ORANGE 06/20/18 22:15 Urine Clarity HAZY (CLEAR) 06/20/18 22:15 Urine pH 6.0 (4.6 - 8.0) 06/20/18 22:15 Ur Specific [place] 1.025 (1.005-1.030) 06/20/18 22:15 Urine Protein NEGATIVE mg/dL (NEGATIVE) 06/20/18 22:15 Urine Glucose (UA) NEGATIVE mg/dL (NEGATIVE) 06/20/18 22:15 Urine Ketones TRACE mg/dL (NEGATIVE) 06/20/18 22:15 Urine Blood NEGATIVE (NEGATIVE) 06/20/18 22:15 Urine Nitrate NEGATIVE (NEGATIVE) 06/20/18 22:15 Urine Bilirubin NEGATIVE (NEGATIVE) 06/20/18 22:15 Urine Urobilinogen 1.0 E.U./dL (0.2 - 1.0) 06/20/18 22:15 Ur Leukocyte Esterase TRACE (NEGATIVE) H 06/20/18 22:15 Urine RBC NONE SEEN /hpf (0-5) 06/20/18 22:15 Urine WBC 0-2 /hpf (0-5) 06/20/18 22:15 Ur Epithelial Cells OCCASIONAL /lpf (FEW) 06/20/18 22:15 Urine Bacteria FEW /hpf (NONE SEEN) 06/20/18 22:15 RPR NONREACTIVE (NONREACTIVE) 06/20/18 21:40 - Physical Exam Vitals and I&O: Vital Signs Temp 98 F 06/26/18 06:28 Pulse 61 06/26/18 09:58 Resp 20 06/26/18 06:28 BP 126/75 06/26/18 09:58 Pulse Ox 97 06/26/18 06:28 Intake & Output 06/25/18 06/26/18 06/26/18 18:59 06:59 18:59 Intake Total 1500 240 Balance 1500 240 Intake: Oral 1500 240 Other: # Voids 3 3 # Bowel Movements 0 1 Stool Characteristics Soft Active Medications: Current Medications Acetaminophen (Tylenol) 650 mg PO Q4HR PRN PRN Reason: Mild Pain 1-3/ Temp above 100 Stop: 08/20/18 02:12 Al Hydrox/Mg Hydrox/Simethicone (Maalox) 30 ml PO Q4HR PRN PRN Reason: GI DISTRESS Stop: 08/20/18 02:12 Docusate Sodium (Colace) 100 mg PO BID VALENTIN Stop: 08/20/18 08:59 Last Admin: 06/26/18 09:58 Dose: 100 mg Escitalopram Oxalate (Lexapro) 10 mg PO DAILY VALENTIN; Protocol Stop: 08/24/18 08:59 Last Admin: 06/26/18 09:58 Dose: 10 mg Lisinopril (Zestril) 10 mg PO DAILY VALENTIN Stop: 08/20/18 08:59 Last Admin: 06/26/18 09:58 Dose: 10 mg Lorazepam (Ativan) 0.5 mg PO Q4HR PRN; Protocol PRN Reason: Agitation/ Anxiety Stop: 07/21/18 02:12 Last Admin: 06/25/18 20:32 Dose: 0.5 mg Magnesium Hydroxide (Milk Of Magnesia) 30 ml PO HS PRN PRN Reason: Constipation Multivitamins/Vitamin C (Theragran) 1 tab PO DAILY VALENTIN Stop: 08/20/18 08:59 Last Admin: 06/26/18 09:58 Dose: 1 tab Zolpidem Tartrate (Ambien) 5 mg PO HS PRN PRN Reason: Insomnia Stop: 08/20/18 02:12 Last Admin: 06/25/18 20:32 Dose: 5 mg General: demented HEENT: NC/AT, PERRLA Neck: Supple, No JVD, No LAD Lungs: CTAB Cardiovascular: RRR, Normal S1, Normal S2, with murmur Abdomen: soft, non-tender, globular, non-distended, positive bowel sound Extremities: excoriation Neurological: no change, disorganized Internal Medicine Assmt/Plan - Assessment Assessment: ASSESSMENT AND PLAN: 1. Bradycardia. 2. Renal insufficiency. 3. Hypercholesterolemia. 4. Hypertension. 5. Intellectual disability. . - Plan Plan: monitor hr closely fall precautions continue current plan of care Nutritional Asmnt/Malnutr-PDOC - Dietary Evaluation Malnutrition Findings (Please click <Entered> for more info): Nutritional Asmnt/Malnutrition Start: 06/24/18 13: 36 Text: Status: Complete Freq: Protocol: Document 06/24/18 13:36 [email or web address] (Rec: 06/24/18 13:41 [email or web address]) Nutritional Asmnt/Malnutrition Patient General Information Nutritional Screening Moderate Risk Diagnosis psychosis Pertinent Medical Hx/Surgical Hx intellectual disability, psycho disorder, HTN, hypercholesterolemia Subjective Information Pt was seen eating in dining room at time of visit. Pt is confused, unable to participate in conversation, but agreed the food is good. PO intake is 100% per EMR. Current Diet Order/ Nutrition Support mech soft ground, BERNARD small portion Patient / S.O Can't verbalize diet edu Pertinent Medications colace, theragran, ambien Pertinent Labs 06/20 glucose 113, BUN 26, cholesterol 201 Nutritional Hx/Data Height 5 ft 7 in Height (Calculated Centimeters) 170.2 Current Weight (lbs) 167 lb Weight (Calculated Kilograms) 75.7 Weight (Calculated Grams) 29180.9 [place] Body Weight 148 Body Mass Index (BMI) 26.2 Weight Status Overweight GI Symptoms GI Symptoms None Last BM 1/3 Difficult in: None Food Allergies No Skin Integrity/Comment: beronica [place] 22 Current %PO Good (75-100%) Estimated Nutritional Goals BEE in Kcals: Using Current wt Calories/Kcals/Kg 23-27 Kcals Calculated 6004-9292 Protein: Using Current wt Protein g/k.8-1 Protein Calculated 60-75 Fluid: ml 2734-7048 (1ml/kcal) Nutritional Problem No current Nutrition Prob Problem N/A Malnutrition Alert Is there a minimum of two criteria No selected? Query Text:Check all the applicable criteria. A minimum of two criteria are recommended for diagnosis of either severe or non-severe malnutrition. Malnutrition Related to Morbid Obesity Malnutrition related to morbid obesity No Intervention/Recommendation Comments 1. Continue with [facility] soft ground, BERNARD small portions diet as ordered. 2. Monitor PO intake, wt, labs and skin integrity 3. F/U as low risk in 7 days Expected Outcomes/Goals Expected Outcomes/Goals Goal: PO intake to meet at least 75% of nutritional needs and improved labs. Reviewed by Mesha Clemente RD
--- NOTE | 2018-06-26 15:37 | Progress Notes ---
DATE: 06/26/2018 SUBJECTIVE: Staff was spoken. The patient is interviewed. Mood is noted to be irritable. Affect is constricted. Coping skills are noted to be poor. The patient has been having irritability and anger, but the patient was not able to express. No side effects to the medications are noted. The patient has been closely monitored and redirected. The patient is currently on 10 mg of the escitalopram and has been able to tolerate. ASSESSMENT: The patient is still depressed. The patient, however is not able to care for self and he is alert and awake, but he is not able to participate in the treatment [place]. JOB# [id number]
[2018-06-27] MEDS: Multivitamin Tab PO SCH (09:58)
--- NOTE | 2018-06-27 12:35 | Internal Medicine Prog Note ---
Internal Medicine Subjective - Subjective Patient seen and examined:: with staff, chart reviewed Patient is:: awake, verbal, interactive Per staff patient has:: no adverse event, no episodes of fall, poor appetite, tolerating meds Internal Medicine Objective - Results Result Diagrams: 06/20/18 21:40 06/20/18 21:40 Recent Labs: Laboratory Last Values WBC 6.3 Th/cmm (4.8-10.8) 06/20/18 21:40 RBC 5.18 Mil/cmm (3.80-5.80) 06/20/18 21:40 Hgb 15.6 gm/dL (12-16) 06/20/18 21:40 Hct 46.8 % (41.0-60) 06/20/18 21:40 MCV 90.4 fl (80-99) 06/20/18 21:40 MCH 30.1 pg (27.0-31.0) 06/20/18 21:40 MCHC Differential 33.3 pg (28.0-36.0) 06/20/18 21:40 RDW 12.3 % (11.5-20.0) 06/20/18 21:40 Plt Count 255 Th/cmm (150-400) 06/20/18 21:40 MPV 7.1 fl 06/20/18 21:40 Neutrophils % 54.1 % (40.0-80.0) 06/20/18 21:40 Lymphocytes % 31.7 % (20.0-50.0) 06/20/18 21:40 Monocytes % 11.0 % (2.0-10.0) H 06/20/18 21:40 Eosinophils % 2.3 % (0.0-5.0) 06/20/18 21:40 Basophils % 0.9 % (0.0-2.0) 06/20/18 21:40 Sodium 137 mEq/L (136-145) 06/20/18 21:40 Potassium 4.1 mEq/L (3.5-5.1) 06/20/18 21:40 Chloride 104 mEq/L (98-107) 06/20/18 21:40 Carbon Dioxide 25.0 mEq/L (21.0-31.0) 06/20/18 21:40 Anion Gap 12.1 (7.0-16.0) 12/31/18 21:40 BUN 26 mg/dL (7-25) H 06/20/18 21:40 Creatinine 1.1 mg/dL (0.7-1.3) 06/20/18 21:40 Est GFR ( Amer) TNP 06/20/18 21:40 Est GFR (Non-Af Amer) TNP 06/20/18 21:40 BUN/Creatinine Ratio 23.6 06/20/18 21:40 Glucose 113 mg/dL (70-105) H 06/20/18 21:40 Calcium 9.5 mg/dL (8.6-10.3) 06/20/18 21:40 Total Bilirubin 0.4 mg/dL (0.3-1.0) 06/20/18 21:40 AST 14 U/L (13-39) 06/20/18 21:40 ALT 11 U/L (7-52) 06/20/18 21:40 Alkaline Phosphatase 72 U/L (34-104) 06/20/18 21:40 Total Protein 7.0 gm/dL (6.0-8.3) 06/20/18 21:40 Albumin 4.2 gm/dL (4.2-5.5) 06/20/18 21:40 Globulin 2.8 gm/dL 06/20/18 21:40 Albumin/Globulin Ratio 1.5 (1.0-1.8) 06/20/18 21:40 Triglycerides 128 mg/dL (<150) 06/20/18 21:40 Cholesterol 201 mg/dL (<200) H 06/20/18 21:40 LDL Cholesterol Direct 149 mg/dL (75-193) 06/20/18 21:40 HDL Cholesterol 43 mg/dL (23-92) 06/20/18 21:40 TSH 1.15 uIU/ml (0.34-5.60) 06/20/18 21:40 Urine Source CLEAN C 06/20/18 22:15 Urine Color ORANGE 06/20/18 22:15 Urine Clarity HAZY (CLEAR) 06/20/18 22:15 Urine pH 6.0 (4.6 - 8.0) 06/20/18 22:15 Ur Specific [place] 1.025 (1.005-1.030) 06/20/18 22:15 Urine Protein NEGATIVE mg/dL (NEGATIVE) 06/20/18 22:15 Urine Glucose (UA) NEGATIVE mg/dL (NEGATIVE) 06/20/18 22:15 Urine Ketones TRACE mg/dL (NEGATIVE) 06/20/18 22:15 Urine Blood NEGATIVE (NEGATIVE) 06/20/18 22:15 Urine Nitrate NEGATIVE (NEGATIVE) 06/20/18 22:15 Urine Bilirubin NEGATIVE (NEGATIVE) 06/20/18 22:15 Urine Urobilinogen 1.0 E.U./dL (0.2 - 1.0) 06/20/18 22:15 Ur Leukocyte Esterase TRACE (NEGATIVE) H 06/20/18 22:15 Urine RBC NONE SEEN /hpf (0-5) 06/20/18 22:15 Urine WBC 0-2 /hpf (0-5) 06/20/18 22:15 Ur Epithelial Cells OCCASIONAL /lpf (FEW) 06/20/18 22:15 Urine Bacteria FEW /hpf (NONE SEEN) 06/20/18 22:15 RPR NONREACTIVE (NONREACTIVE) 06/20/18 21:40 - Physical Exam Vitals and I&O: Vital Signs Temp 98.7 F 06/26/18 20:10 Pulse 60 06/27/18 10:02 Resp 19 06/26/18 20:10 BP 144/84 06/27/18 10:02 Pulse Ox 97 06/26/18 20:10 Intake & Output 06/26/18 06/27/18 06/27/18 18:59 06:59 18:59 Intake Total 1600 180 Balance 1600 180 Intake: Oral 1600 180 Other: # Voids 4 1 # Bowel Movements 2 0 Active Medications: Current Medications Acetaminophen (Tylenol) 650 mg PO Q4HR PRN PRN Reason: Mild Pain 1-3/ Temp above 100 Stop: 08/20/18 02:12 Al Hydrox/Mg Hydrox/Simethicone (Maalox) 30 ml PO Q4HR PRN PRN Reason: GI DISTRESS Stop: 08/20/18 02:12 Docusate Sodium (Colace) 100 mg PO BID VALENTIN Stop: 08/20/18 08:59 Last Admin: 06/27/18 09:58 Dose: 100 mg Escitalopram Oxalate (Lexapro) 10 mg PO DAILY VALENTIN; Protocol Stop: 08/24/18 08:59 Last Admin: 06/27/18 09:58 Dose: 10 mg Lisinopril (Zestril) 10 mg PO DAILY VALENTIN Stop: 08/20/18 08:59 Last Admin: 06/27/18 10:02 Dose: 10 mg Lorazepam (Ativan) 0.5 mg PO Q4HR PRN; Protocol PRN Reason: Agitation/ Anxiety Stop: 07/21/18 02:12 Last Admin: 06/26/18 20:30 Dose: 0.5 mg Magnesium Hydroxide (Milk Of Magnesia) 30 ml PO HS PRN PRN Reason: Constipation Multivitamins/Vitamin C (Theragran) 1 tab PO DAILY VALENTIN Stop: 08/20/18 08:59 Last Admin: 06/27/18 09:58 Dose: 1 tab Zolpidem Tartrate (Ambien) 5 mg PO HS PRN PRN Reason: Insomnia Stop: 08/20/18 02:12 Last Admin: 06/26/18 20:30 Dose: 5 mg General: demented HEENT: NC/AT, PERRLA Neck: Supple, No JVD, No LAD Lungs: CTAB Cardiovascular: RRR, Normal S1, Normal S2, with murmur Abdomen: soft, non-tender, globular, non-distended, positive bowel sound Extremities: excoriation Neurological: no change, disorganized Internal Medicine Assmt/Plan - Assessment Assessment: ASSESSMENT AND PLAN: 1. Bradycardia. 2. Renal insufficiency. 3. Hypercholesterolemia. 4. Hypertension. 5. Intellectual disability. - Plan Plan: PLAN: We will continue __current__ treatment. We will place the patient on low fat, low cholesterol diet, continue on angiotensin converting enzyme inhibitor. Continue with current care. We will continue to follow. Psychiatry to manage the patient for psych issues. Nutritional Asmnt/Malnutr-PDOC - Dietary Evaluation Malnutrition Findings (Please click <Entered> for more info): Nutritional Asmnt/Malnutrition Start: 06/24/18 13: 36 Text: Status: Complete Freq: Protocol: Document 06/24/18 13:36 [email or web address] (Rec: 06/24/18 13:41 [email or web address]) Nutritional Asmnt/Malnutrition Patient General Information Nutritional Screening Moderate Risk Diagnosis psychosis Pertinent Medical Hx/Surgical Hx intellectual disability, psycho disorder, HTN, hypercholesterolemia Subjective Information Pt was seen eating in dining room at time of visit. Pt is confused, unable to participate in conversation, but agreed the food is good. PO intake is 100% per EMR. Current Diet Order/ Nutrition Support [facility] soft ground, BERNARD small portion Patient / S.O Can't verbalize diet edu Pertinent Medications sheldon de jesus ambien Pertinent Labs 06/20 glucose 113, BUN 26, cholesterol 201 Nutritional Hx/Data Height 1.7 m Height (Calculated Centimeters) 170.2 Current Weight (lbs) 75.75 kg Weight (Calculated Kilograms) 75.7 Weight (Calculated Grams) 71685.9 [place] Body Weight 148 Body Mass Index (BMI) 26.2 Weight Status Overweight GI Symptoms GI Symptoms None Last BM 1/3 Difficult in: None Food Allergies No Skin Integrity/Comment: beronica mosley 22 Current %PO Good (75-100%) Estimated Nutritional Goals BEE in Kcals: Using Current wt Calories/Kcals/Kg 23-27 Kcals Calculated 5362-7813 Protein: Using Current wt Protein g/k.8-1 Protein Calculated 60-75 Fluid: ml 2893-8392 (1ml/kcal) Nutritional Problem No current Nutrition Prob Problem N/A Malnutrition Alert Is there a minimum of two criteria No selected? Query Text:Check all the applicable criteria. A minimum of two criteria are recommended for diagnosis of either severe or non-severe malnutrition. Malnutrition Related to Morbid Obesity Malnutrition related to morbid obesity No Intervention/Recommendation Comments 1. Continue with [facility] soft ground, EBRNARD small portions diet as ordered. 2. Monitor PO intake, wt, labs and skin integrity 3. F/U as low risk in 7 days Expected Outcomes/Goals Expected Outcomes/Goals Goal: PO intake to meet at least 75% of nutritional needs and improved labs. Reviewed by Mesha Clemente RD
--- NOTE | 2018-06-28 01:19 | Progress Notes ---
DATE: 06/27/2018 PSYCHIATRIC PROGRESS NOTE SUBJECTIVE: Staff was spoken to. The patient is interviewed. Mood is noted to be anxious. The patient is less irritable. No major behavioral problems are noted. The patient has been compliant with the medication. The patient is currently on 10 mg of escitalopram and has been able to tolerate the medication. The patient has just started to participate in the groups. Sleep and appetite are noted to be improving. ASSESSMENT: The patient is still depressed. PLAN: To continue the patient with supportive therapy. I encouraged the patient to verbalize the concerns rather than to act out. JOB# [id number]
[2018-06-28] MEDS: Multivitamin Tab PO SCH (08:40)
--- NOTE | 2018-06-28 15:39 | Internal Medicine Prog Note ---
Internal Medicine Subjective - Subjective Patient seen and examined:: with staff, chart reviewed Patient is:: awake, verbal, interactive Per staff patient has:: no adverse event, no episodes of fall, poor appetite, tolerating meds Internal Medicine Objective - Results Result Diagrams: 06/20/18 21:40 06/20/18 21:40 Recent Labs: Laboratory Last Values WBC 6.3 Th/cmm (4.8-10.8) 06/20/18 21:40 RBC 5.18 Mil/cmm (3.80-5.80) 06/20/18 21:40 Hgb 15.6 gm/dL (12-16) 06/20/18 21:40 Hct 46.8 % (41.0-60) 06/20/18 21:40 MCV 90.4 fl (80-99) 06/20/18 21:40 MCH 30.1 pg (27.0-31.0) 06/20/18 21:40 MCHC Differential 33.3 pg (28.0-36.0) 06/20/18 21:40 RDW 12.3 % (11.5-20.0) 06/20/18 21:40 Plt Count 255 Th/cmm (150-400) 06/20/18 21:40 MPV 7.1 fl 06/20/18 21:40 Neutrophils % 54.1 % (40.0-80.0) 06/20/18 21:40 Lymphocytes % 31.7 % (20.0-50.0) 06/20/18 21:40 Monocytes % 11.0 % (2.0-10.0) H 06/20/18 21:40 Eosinophils % 2.3 % (0.0-5.0) 06/20/18 21:40 Basophils % 0.9 % (0.0-2.0) 06/20/18 21:40 Sodium 137 mEq/L (136-145) 06/20/18 21:40 Potassium 4.1 mEq/L (3.5-5.1) 06/20/18 21:40 Chloride 104 mEq/L (98-107) 06/20/18 21:40 Carbon Dioxide 25.0 mEq/L (21.0-31.0) 06/20/18 21:40 Anion Gap 12.1 (7.0-16.0) 12/31/18 21:40 BUN 26 mg/dL (7-25) H 06/20/18 21:40 Creatinine 1.1 mg/dL (0.7-1.3) 06/20/18 21:40 Est GFR ( Amer) TNP 06/20/18 21:40 Est GFR (Non-Af Amer) TNP 06/20/18 21:40 BUN/Creatinine Ratio 23.6 06/20/18 21:40 Glucose 113 mg/dL (70-105) H 06/20/18 21:40 Calcium 9.5 mg/dL (8.6-10.3) 06/20/18 21:40 Total Bilirubin 0.4 mg/dL (0.3-1.0) 06/20/18 21:40 AST 14 U/L (13-39) 06/20/18 21:40 ALT 11 U/L (7-52) 06/20/18 21:40 Alkaline Phosphatase 72 U/L (34-104) 06/20/18 21:40 Total Protein 7.0 gm/dL (6.0-8.3) 06/20/18 21:40 Albumin 4.2 gm/dL (4.2-5.5) 06/20/18 21:40 Globulin 2.8 gm/dL 06/20/18 21:40 Albumin/Globulin Ratio 1.5 (1.0-1.8) 06/20/18 21:40 Triglycerides 128 mg/dL (<150) 06/20/18 21:40 Cholesterol 201 mg/dL (<200) H 06/20/18 21:40 LDL Cholesterol Direct 149 mg/dL (75-193) 06/20/18 21:40 HDL Cholesterol 43 mg/dL (23-92) 06/20/18 21:40 TSH 1.15 uIU/ml (0.34-5.60) 06/20/18 21:40 Urine Source CLEAN C 06/20/18 22:15 Urine Color ORANGE 06/20/18 22:15 Urine Clarity HAZY (CLEAR) 06/20/18 22:15 Urine pH 6.0 (4.6 - 8.0) 06/20/18 22:15 Ur Specific [place] 1.025 (1.005-1.030) 06/20/18 22:15 Urine Protein NEGATIVE mg/dL (NEGATIVE) 06/20/18 22:15 Urine Glucose (UA) NEGATIVE mg/dL (NEGATIVE) 06/20/18 22:15 Urine Ketones TRACE mg/dL (NEGATIVE) 06/20/18 22:15 Urine Blood NEGATIVE (NEGATIVE) 06/20/18 22:15 Urine Nitrate NEGATIVE (NEGATIVE) 06/20/18 22:15 Urine Bilirubin NEGATIVE (NEGATIVE) 06/20/18 22:15 Urine Urobilinogen 1.0 E.U./dL (0.2 - 1.0) 06/20/18 22:15 Ur Leukocyte Esterase TRACE (NEGATIVE) H 06/20/18 22:15 Urine RBC NONE SEEN /hpf (0-5) 06/20/18 22:15 Urine WBC 0-2 /hpf (0-5) 06/20/18 22:15 Ur Epithelial Cells OCCASIONAL /lpf (FEW) 06/20/18 22:15 Urine Bacteria FEW /hpf (NONE SEEN) 06/20/18 22:15 RPR NONREACTIVE (NONREACTIVE) 06/20/18 21:40 - Physical Exam Vitals and I&O: Vital Signs Temp 97.8 F 06/28/18 06:10 Pulse 73 06/28/18 08:41 Resp 18 06/28/18 06:10 BP 105/58 06/28/18 08:41 Pulse Ox 98 06/28/18 06:10 Intake & Output 06/27/18 06/28/18 06/28/18 18:59 06:59 18:59 Intake Total 240 Output Total 1 Balance 239 Intake: Oral 240 Output: Urine/Stool Mix 1 Other: # Voids 1 # Bowel Movements 1 Active Medications: Current Medications Acetaminophen (Tylenol) 650 mg PO Q4HR PRN PRN Reason: Mild Pain 1-3/ Temp above 100 Stop: 08/20/18 02:12 Al Hydrox/Mg Hydrox/Simethicone (Maalox) 30 ml PO Q4HR PRN PRN Reason: GI DISTRESS Stop: 08/20/18 02:12 Docusate Sodium (Colace) 100 mg PO BID VALENTIN Stop: 08/20/18 08:59 Last Admin: 06/28/18 08:39 Dose: 100 mg Escitalopram Oxalate (Lexapro) 10 mg PO DAILY [facility]; Protocol Stop: 08/24/18 08:59 Last Admin: 06/28/18 08:39 Dose: 10 mg Lisinopril (Zestril) 10 mg PO DAILY VALENTIN Stop: 08/20/18 08:59 Last Admin: 06/28/18 08:41 Dose: Not Given Lorazepam (Ativan) 0.5 mg PO Q4HR PRN; Protocol PRN Reason: Agitation/ Anxiety Stop: 07/21/18 02:12 Last Admin: 06/26/18 20:30 Dose: 0.5 mg Magnesium Hydroxide (Milk Of Magnesia) 30 ml PO HS PRN PRN Reason: Constipation Multivitamins/Vitamin C (Theragran) 1 tab PO DAILY VALENTIN Stop: 08/20/18 08:59 Last Admin: 06/28/18 08:40 Dose: 1 tab Zolpidem Tartrate (Ambien) 5 mg PO HS PRN PRN Reason: Insomnia Stop: 08/20/18 02:12 Last Admin: 06/26/18 20:30 Dose: 5 mg General: demented HEENT: NC/AT, PERRLA Neck: Supple, No JVD, No LAD Lungs: CTAB Cardiovascular: RRR, Normal S1, Normal S2, with murmur Abdomen: soft, non-tender, globular, non-distended, positive bowel sound Extremities: excoriation Neurological: no change, disorganized Internal Medicine Assmt/Plan - Assessment Assessment: ASSESSMENT AND PLAN: 1. Bradycardia. 2. Renal insufficiency. 3. Hypercholesterolemia. 4. Hypertension. 5. Intellectual disability. - Plan Plan: PLAN: We will continue __current__ treatment. We will place the patient on low fat, low cholesterol diet, continue on angiotensin converting enzyme inhibitor. Continue with current care. We will continue to follow. Psychiatry to manage the patient for psych issues. Nutritional Asmnt/Malnutr-PDOC - Dietary Evaluation Malnutrition Findings (Please click <Entered> for more info): Nutritional Asmnt/Malnutrition Start: 06/24/18 13: 36 Text: Status: Complete Freq: Protocol: Document 06/24/18 13:36 [email or web address] (Rec: 06/24/18 13:41 [email or web address]) Nutritional Asmnt/Malnutrition Patient General Information Nutritional Screening Moderate Risk Diagnosis psychosis Pertinent Medical Hx/Surgical Hx intellectual disability, psycho disorder, HTN, hypercholesterolemia Subjective Information Pt was seen eating in dining room at time of visit. Pt is confused, unable to participate in conversation, but agreed the food is good. PO intake is 100% per EMR. Current Diet Order/ Nutrition Support [facility] soft ground, BERNARD small portion Patient / S.O Can't verbalize diet edu Pertinent Medications colace, theragran ambkhanh Pertinent Labs 06/20 glucose 113, BUN 26, cholesterol 201 Nutritional Hx/Data Height 1.7 m Height (Calculated Centimeters) 170.2 Current Weight (lbs) 75.75 kg Weight (Calculated Kilograms) 75.7 Weight (Calculated Grams) 50830.9 [place] Body Weight 148 Body Mass Index (BMI) 26.2 Weight Status Overweight GI Symptoms GI Symptoms None Last BM 1/3 Difficult in: None Food Allergies No Skin Integrity/Comment: dimitri, beronica 22 Current %PO Good (75-100%) Estimated Nutritional Goals BEE in Kcals: Using Current wt Calories/Kcals/Kg 23-27 Kcals Calculated 7947-0169 Protein: Using Current wt Protein g/k.8-1 Protein Calculated 60-75 Fluid: ml 8370-4858 (1ml/kcal) Nutritional Problem No current Nutrition Prob Problem N/A Malnutrition Alert Is there a minimum of two criteria No selected? Query Text:Check all the applicable criteria. A minimum of two criteria are recommended for diagnosis of either severe or non-severe malnutrition. Malnutrition Related to Morbid Obesity Malnutrition related to morbid obesity No Intervention/Recommendation Comments 1. Continue with [facility] soft ground, BERNARD small portions diet as ordered. 2. Monitor PO intake, wt, labs and skin integrity 3. F/U as low risk in 7 days Expected Outcomes/Goals Expected Outcomes/Goals Goal: PO intake to meet at least 75% of nutritional needs and improved labs. Reviewed by Mesha Clemente RD
--- NOTE | 2018-06-28 19:34 | Progress Notes ---
DATE: 06/27/2018 PSYCHOLOGY PROGRESS NOTE SUBJECTIVE: The patient is seen and interviewed. Mood is anxious. The patient appears to be less irritable. The staff reports the patient is taking all of his p.o. meds with no major behavioral problems. The patient, however, continues to report that he feels depressed. OBJECTIVE: Mood dysphoric. Affect constricted. Thought process concrete. The patient denied any auditory or visual hallucinations or any delusions. The patient's behavior is stabilizing. ASSESSMENT: 1. Psychotic disorder, not otherwise specified, improved. 2. Dementia with behavioral disturbance. PLAN: We have continued to provide supportive psychotherapy to include reality orientation and integration. This board writer has provided coping strategies for phase of life issues. The patient is less agitated and less irritable and is able to demonstrate emotional and self-regulation. Overall, the patient is improving. We provided remotivation for the patient to stay compliant with all aspects of his care and treatment. JOB# [id number] RAINA
--- NOTE | 2018-06-29 03:22 | Progress Notes ---
DATE: 06/28/2018 PSYCHIATRIC PROGRESS NOTE SUBJECTIVE: Staff was spoken to. The patient is interviewed. Mood is noted to be less irritable. Affect is appropriate. The patient's coping skills are noted to be improving. The patient; however, is noted to be isolative and withdrawn. Coping skills are noted to be very poor. The patient is not able to clearly articulate his needs. The patient is however alert and awake. Insight and judgment are noted to be still impaired. Impulse control seems to be improving. The patient is currently on 10 mg of the Lexapro and has been able to tolerate the medication. ASSESSMENT: The patient is still depressed. PLAN: To continue the patient with the current medications. I encouraged the patient to verbalize the concerns rather than to act out. JOB# [id number]
[2018-06-29] MEDS: Multivitamin Tab PO SCH (08:40)
--- NOTE | 2018-06-29 14:27 | Internal Medicine Prog Note ---
Internal Medicine Subjective - Subjective Patient seen and examined:: with staff, chart reviewed Patient is:: awake, verbal, interactive Per staff patient has:: no adverse event, no episodes of fall, poor appetite, tolerating meds Internal Medicine Objective - Results Result Diagrams: 06/20/18 21:40 06/20/18 21:40 Recent Labs: Laboratory Last Values WBC 6.3 Th/cmm (4.8-10.8) 06/20/18 21:40 RBC 5.18 Mil/cmm (3.80-5.80) 06/20/18 21:40 Hgb 15.6 gm/dL (12-16) 06/20/18 21:40 Hct 46.8 % (41.0-60) 06/20/18 21:40 MCV 90.4 fl (80-99) 06/20/18 21:40 MCH 30.1 pg (27.0-31.0) 06/20/18 21:40 MCHC Differential 33.3 pg (28.0-36.0) 06/20/18 21:40 RDW 12.3 % (11.5-20.0) 06/20/18 21:40 Plt Count 255 Th/cmm (150-400) 06/20/18 21:40 MPV 7.1 fl 06/20/18 21:40 Neutrophils % 54.1 % (40.0-80.0) 06/20/18 21:40 Lymphocytes % 31.7 % (20.0-50.0) 06/20/18 21:40 Monocytes % 11.0 % (2.0-10.0) H 06/20/18 21:40 Eosinophils % 2.3 % (0.0-5.0) 06/20/18 21:40 Basophils % 0.9 % (0.0-2.0) 06/20/18 21:40 Sodium 137 mEq/L (136-145) 06/20/18 21:40 Potassium 4.1 mEq/L (3.5-5.1) 06/20/18 21:40 Chloride 104 mEq/L (98-107) 06/20/18 21:40 Carbon Dioxide 25.0 mEq/L (21.0-31.0) 06/20/18 21:40 Anion Gap 12.1 (7.0-16.0) 12/31/18 21:40 BUN 26 mg/dL (7-25) H 06/20/18 21:40 Creatinine 1.1 mg/dL (0.7-1.3) 06/20/18 21:40 Est GFR ( Amer) TNP 06/20/18 21:40 Est GFR (Non-Af Amer) TNP 06/20/18 21:40 BUN/Creatinine Ratio 23.6 06/20/18 21:40 Glucose 113 mg/dL (70-105) H 06/20/18 21:40 Calcium 9.5 mg/dL (8.6-10.3) 06/20/18 21:40 Total Bilirubin 0.4 mg/dL (0.3-1.0) 06/20/18 21:40 AST 14 U/L (13-39) 06/20/18 21:40 ALT 11 U/L (7-52) 06/20/18 21:40 Alkaline Phosphatase 72 U/L (34-104) 06/20/18 21:40 Total Protein 7.0 gm/dL (6.0-8.3) 06/20/18 21:40 Albumin 4.2 gm/dL (4.2-5.5) 06/20/18 21:40 Globulin 2.8 gm/dL 06/20/18 21:40 Albumin/Globulin Ratio 1.5 (1.0-1.8) 06/20/18 21:40 Triglycerides 128 mg/dL (<150) 06/20/18 21:40 Cholesterol 201 mg/dL (<200) H 06/20/18 21:40 LDL Cholesterol Direct 149 mg/dL (75-193) 06/20/18 21:40 HDL Cholesterol 43 mg/dL (23-92) 06/20/18 21:40 TSH 1.15 uIU/ml (0.34-5.60) 06/20/18 21:40 Urine Source CLEAN C 06/20/18 22:15 Urine Color ORANGE 06/20/18 22:15 Urine Clarity HAZY (CLEAR) 06/20/18 22:15 Urine pH 6.0 (4.6 - 8.0) 06/20/18 22:15 Ur Specific [place] 1.025 (1.005-1.030) 06/20/18 22:15 Urine Protein NEGATIVE mg/dL (NEGATIVE) 06/20/18 22:15 Urine Glucose (UA) NEGATIVE mg/dL (NEGATIVE) 06/20/18 22:15 Urine Ketones TRACE mg/dL (NEGATIVE) 06/20/18 22:15 Urine Blood NEGATIVE (NEGATIVE) 06/20/18 22:15 Urine Nitrate NEGATIVE (NEGATIVE) 06/20/18 22:15 Urine Bilirubin NEGATIVE (NEGATIVE) 06/20/18 22:15 Urine Urobilinogen 1.0 E.U./dL (0.2 - 1.0) 06/20/18 22:15 Ur Leukocyte Esterase TRACE (NEGATIVE) H 06/20/18 22:15 Urine RBC NONE SEEN /hpf (0-5) 06/20/18 22:15 Urine WBC 0-2 /hpf (0-5) 06/20/18 22:15 Ur Epithelial Cells OCCASIONAL /lpf (FEW) 06/20/18 22:15 Urine Bacteria FEW /hpf (NONE SEEN) 06/20/18 22:15 RPR NONREACTIVE (NONREACTIVE) 06/20/18 21:40 - Physical Exam Vitals and I&O: Vital Signs Temp 96.9 F 06/29/18 05:58 Pulse 62 06/29/18 08:41 Resp 20 06/29/18 05:58 BP 137/78 06/29/18 08:41 Pulse Ox 98 06/29/18 05:58 Intake & Output 06/28/18 06/29/18 06/29/18 18:59 06:59 18:59 Intake Total 180 Balance 180 Intake: Oral 180 Other: # Voids 1 # Bowel Movements 0 Active Medications: Current Medications Acetaminophen (Tylenol) 650 mg PO Q4HR PRN PRN Reason: Mild Pain 1-3/ Temp above 100 Stop: 08/20/18 02:12 Al Hydrox/Mg Hydrox/Simethicone (Maalox) 30 ml PO Q4HR PRN PRN Reason: GI DISTRESS Stop: 08/20/18 02:12 Docusate Sodium (Colace) 100 mg PO BID VALENTIN Stop: 08/20/18 08:59 Last Admin: 06/29/18 08:41 Dose: 100 mg Escitalopram Oxalate (Lexapro) 10 mg PO DAILY [facility]; Protocol Stop: 08/24/18 08:59 Last Admin: 06/29/18 08:40 Dose: 10 mg Lisinopril (Zestril) 10 mg PO DAILY VALENTIN Stop: 08/20/18 08:59 Last Admin: 06/29/18 08:41 Dose: 10 mg Lorazepam (Ativan) 0.5 mg PO Q4HR PRN; Protocol PRN Reason: Agitation/ Anxiety Stop: 07/21/18 02:12 Last Admin: 06/29/18 00:33 Dose: 0.5 mg Magnesium Hydroxide (Milk Of Magnesia) 30 ml PO HS PRN PRN Reason: Constipation Multivitamins/Vitamin C (Theragran) 1 tab PO DAILY VALENTIN Stop: 08/20/18 08:59 Last Admin: 06/29/18 08:40 Dose: 1 tab Zolpidem Tartrate (Ambien) 5 mg PO HS PRN PRN Reason: Insomnia Stop: 08/20/18 02:12 Last Admin: 06/28/18 20:30 Dose: 5 mg General: demented HEENT: NC/AT, PERRLA Neck: Supple, No JVD, No LAD Lungs: CTAB Cardiovascular: RRR, Normal S1, Normal S2, with murmur Abdomen: soft, non-tender, globular, non-distended, positive bowel sound Extremities: excoriation Neurological: no change, disorganized Internal Medicine Assmt/Plan - Assessment Assessment: ASSESSMENT AND PLAN: 1. Bradycardia. 2. Renal insufficiency. 3. Hypercholesterolemia. 4. Hypertension. 5. Intellectual disability. - Plan Plan: PLAN: We will continue __current__ treatment. We will place the patient on low fat, low cholesterol diet, continue on angiotensin converting enzyme inhibitor. Continue with current care. We will continue to follow. Psychiatry to manage the patient for psych issues. Nutritional Asmnt/Malnutr-PDOC - Dietary Evaluation Malnutrition Findings (Please click <Entered> for more info): Nutritional Asmnt/Malnutrition Start: 06/24/18 13: 36 Text: Status: Complete Freq: Protocol: Document 06/24/18 13:36 [email or web address] (Rec: 06/24/18 13:41 [email or web address]) Nutritional Asmnt/Malnutrition Patient General Information Nutritional Screening Moderate Risk Diagnosis psychosis Pertinent Medical Hx/Surgical Hx intellectual disability, psycho disorder, HTN, hypercholesterolemia Subjective Information Pt was seen eating in dining room at time of visit. Pt is confused, unable to participate in conversation, but agreed the food is good. PO intake is 100% per EMR. Current Diet Order/ Nutrition Support [facility] soft ground, BERNARD small portion Patient / S.O Can't verbalize diet edu Pertinent Medications colace, matheus chung Pertinent Labs 06/20 glucose 113, BUN 26, cholesterol 201 Nutritional Hx/Data Height 1.7 m Height (Calculated Centimeters) 170.2 Current Weight (lbs) 75.75 kg Weight (Calculated Kilograms) 75.7 Weight (Calculated Grams) 02879.9 [place] Body Weight 148 Body Mass Index (BMI) 26.2 Weight Status Overweight GI Symptoms GI Symptoms None Last BM 1/3 Difficult in: None Food Allergies No Skin Integrity/Comment: dimitri, beronica 22 Current %PO Good (75-100%) Estimated Nutritional Goals BEE in Kcals: Using Current wt Calories/Kcals/Kg 23-27 Kcals Calculated 2239-8395 Protein: Using Current wt Protein g/k.8-1 Protein Calculated 60-75 Fluid: ml 3585-7358 (1ml/kcal) Nutritional Problem No current Nutrition Prob Problem N/A Malnutrition Alert Is there a minimum of two criteria No selected? Query Text:Check all the applicable criteria. A minimum of two criteria are recommended for diagnosis of either severe or non-severe malnutrition. Malnutrition Related to Morbid Obesity Malnutrition related to morbid obesity No Intervention/Recommendation Comments 1. Continue with [facility] soft ground, BERNARD small portions diet as ordered. 2. Monitor PO intake, wt, labs and skin integrity 3. F/U as low risk in 7 days Expected Outcomes/Goals Expected Outcomes/Goals Goal: PO intake to meet at least 75% of nutritional needs and improved labs. Reviewed by Mesha Clemente RD
--- NOTE | 2018-06-30 00:06 | Progress Notes ---
DATE: 06/29/2018 SUBJECTIVE: Staff was spoken to. The patient is interviewed. Mood is noted to be anxious. ____. Insight and judgment are noted to be improving. Impulse control is noted to be fair. No side effects to the medications are noted. The patient has been able to verbalize the concerns rather than to act out. ASSESSMENT: The patient is stabilizing. PLAN: To [facility] the [facility] for [facility]up. JOB# [id number]
--- NOTE | 2018-06-30 14:41 | Progress Notes ---
DATE: 06/29/2018 SUBJECTIVE: The patient is seen and interviewed. Mood appears to be anxious. The patient states that he is feeling better. The patient denied any complications with his medications. The staff reports the patient has been verbalizing his concerns versus acting out and is less agitated. OBJECTIVE: Mood anxious, mild. Affect constricted. Thought process shows to be goal oriented, but somewhat confused. The patient denied any suicidal ideation, plan or intention. The patient's behavior has been stabilizing. ASSESSMENT AND PLAN: Psychotic disorder, not otherwise specified, improving. Dementia with behavioral disturbance, improving. We provided supportive psychotherapy and reality orientation and integration. We provided the patient with coping strategies for phase of life issues. The patient is able to demonstrate emotional and self-regulation, i.e., not acting out, being able to verbalize concerns. The patient apparently is compliant with his care and treatment. No followup is indicated. The patient is possibly discharging today or tomorrow. JOB# [id number] RAINA
--- NOTE | 2018-07-03 18:28 | Discharge Summary ---
DATE OF DISCHARGE: 06/29/2018 IDENTIFYING DATA: The patient is a 72-year-old male, resident of [facility]. JUSTIFICATION OF HOSPITALIZATION: The patient is admitted for acute agitation and psychosis. CHIEF COMPLAINT: "I do not know." DIAGNOSES: At the time of admission: AXIS I: 1. Psychotic disorder, not otherwise specified. 2. Dementia and behavioral changes secondary to it. AXIS II: None. AXIS III: Hypertension. HOSPITAL COURSE AND RESPONSE TO TREATMENT: The patient is observed on inpatient unit, provided with supportive psychotherapy. The patient had the physical examination done by Dr. Bañuelos. Blood work done at the hospitalization have been reviewed by Dr. Bañuelos. The patient has been closely monitored and encouraged to verbalize the concerns rather than to act out. In view of the aggression and depression, the patient has been started with 10 mg of the Lexapro and has been encouraged to participate in the groups and verbalize the concerns. The patient's Lexapro was gradually increased and the aggression started to come down and the patient was finally discharged on 06/29/2018 with recommendation that he is going to be seeking treatment on an outpatient basis. MENTAL STATUS EXAMINATION: At the time of discharge, the patient's mood is noted to be anxious. Affect is appropriate. Insight and judgment are noted to be improving. Impulse control seems to be fair. Coping skills are also noted to be fair. No side effects to the medications are noted at the time of discharge. The patient has been able to verbalize the concerns rather than to act out at the time of discharge. CONDITION: At the time of discharge noted to be stable. [facility]# [id number]
== END 2018-06-29 19:40 | DRG 885 ==
LOC: ER 20:29 → GERO 23:00
PROVIDERS: ADMIT Psychiatry & Neurology Psychiatry; ATTEND Psychiatry & Neurology Psychiatry
DX: F29 Unspecified psychosis not due to a substance or known physiological condition (principal); F79 Unspecified intellectual disabilities; F03.91 Unspecified dementia, unspecified severity, with behavioral disturbance; N39.0 Urinary tract infection, site not specified; N28.9 Disorder of kidney and ureter, unspecified; E78.5 Hyperlipidemia, unspecified; I10 Essential (primary) hypertension; E78.00 Pure hypercholesterolemia, unspecified; R00.1 Bradycardia, unspecified
CPT/HCPCS: 36415-UA; 80053-TC; 80061-TC; 81001-TC; 83036-90; 84443-TC; 85025-TC; 86592-TC; 93005